=== PATIENT | female | born 1975 | race Caucasian/White ===

== ENCOUNTER 2019-01-28 06:22 | Day surgery (SDC) | payer SELFPAY ==
[2019-01-21 15:52] VITALS: BMI 25.2
[~2019-01-28 06:22] MED LIST: LACTATED RINGERS SOLUTION 1,000 ML IV SCH; ONDANSETRON 4 MG/2 ML VIAL IVPUSH PRN; oxyCODONE HCL 5 MG TABLET PO PRN
[2019-01-28] MEDS ORDERED: EPINEPHrine 1:1,000 1 MG/1 ML - 30ML VIAL (INJECTION) ONE (07:15)
[2019-01-28] MEDS ORDERED: LIDOCAINE HCL 1% PRESERVATIVE FREE - 30ML VIAL ONE (07:15)
[2019-01-28] MEDS ORDERED: ACETAMINOPHEN INJECTION 100 ML IVPB ONE (07:15)
[2019-01-28] MEDS ORDERED: SEVOFLURANE 250 ML BTL ONE (07:16)
[2019-01-28] MEDS ORDERED: GUM MASTIC/STORAX/MSAL/ALCOHOL 1 DRP DROPSBTL MC ONE (07:47)
[2019-01-28] MEDS ORDERED: BACITRACIN 15 GM TUBE TOPICAL OINTMENT ONE ×2 (07:47→11:35)
[2019-01-28] MEDS ORDERED: PROPOFOL 20 ML ONE ×6 (08:03→13:22)
[2019-01-28] MEDS ORDERED: ceFAZolin SODIUM 1 GM VIAL ONE ×2 (08:04→22:22)
[2019-01-28] MEDS ORDERED: SUCCINYLCHOLINE CHLORIDE 200 MG/10 ML VIAL ONE (08:05)
[2019-01-28] MEDS ORDERED: ROCURONIUM BROMIDE 50 MG/5 ML VIAL ONE (08:06)
[2019-01-28] MEDS ORDERED: fentaNYL CITRATE 250 MCG/5 ML VIAL ONE (08:07)
[2019-01-28] MEDS ORDERED: DEXAMETHASONE SOD PHOSPHATE 4 MG/1 ML VIAL ONE (08:08)
[2019-01-28] MEDS ORDERED: MIDAZOLAM HCL 2 MG/2 ML SINGLE DOSE VIAL ONE ×2 (08:08)
[2019-01-28] MEDS ORDERED: ONDANSETRON 4 MG/2 ML VIAL ONE ×2 (08:08→14:18)
[2019-01-28] MEDS ORDERED: SCOPOLAMINE HYDROBROMIDE 1 PATCH PATCH.TD72 ONE ×2 (08:09→08:34)
[2019-01-28] MEDS ORDERED: MINERAL OIL/PETROLATUM,WHITE 3.5 GM TUBE ONE (08:14)
[2019-01-28] MEDS ORDERED: ePHEDrine SULFATE 50 MG/1 ML AMPULE ONE (09:43)
[2019-01-28] MEDS ORDERED: PROMETHAZINE HCL 25 MG/1 ML VIAL ONE (15:55)
[2019-01-28] MEDS ORDERED: PROMETHAZINE HCL 25 MG/1 ML VIAL IVPUSH PRN (16:57)
[2019-01-28] MEDS ORDERED: ACETAMINOPHEN 325 MG TABLET (FP) PO PRN (20:29)
[2019-01-28] MEDS ORDERED: ONDANSETRON 4 MG/2 ML VIAL IVPUSH PRN (20:29)
[2019-01-28] MEDS ORDERED: DEXTROSE 5%-NORMAL SALINE 1,000 ML IV SCH (20:30)
[2019-01-28] MEDS ORDERED: DEXTROSE 5%-WATER - 50 ML IVPB ONE (22:22)
[2019-01-28] MEDS: CEFAZOLIN 1 GM in DEXTROSE 5%-WATER - 50 ML IVPB SCH (22:25)
[2019-01-29] MEDS ORDERED: ceFAZolin SODIUM 1 GM VIAL ONE (03:43)
[2019-01-29] MEDS: CEFAZOLIN 1 GM in DEXTROSE 5%-WATER - 50 ML IVPB SCH ×2 (03:44→09:15)
[2019-01-29] MEDS ORDERED: DEXTROSE 5%-WATER - 50 ML IVPB ONE (03:44)
[2019-01-29 06:41] VITALS: PULSE 103; TEMP 98.7
[2019-01-29] MEDS: traMADol HCL 50 MG TABLET PO PRN ×2 (06:53→10:30)
--- NOTE | 2019-01-29 10:19 | PN ---
Progress Note (short form) - Note Progress Note: ANESTHESIA POSTOP 43 YO FEMALE POD#1 S/P COSMETIC SURGERY AND GETA Patient resting in bed. No complaints. Tolerating PO. No pain issues VSS, Afebrile Continue current care, encouraged IS and ambulation, No anesthetic complications
[2019-01-29 10:46] VITALS: BP 98/52
== END 2019-01-29 10:30 | disposition home or self-care (01) ==
LOC: FASU 06:22 → FM/S 21:08 → FASU 01-29 10:30
PROVIDERS: ATTEND Surgery
PROC: 0J073ZZ Alteration of Back Subcutaneous Tissue and Fascia, Percutaneous Approach (ICD-10-PCS; 2019-01-28)
PROC: 0J0M3ZZ Alteration of Left Upper Leg Subcutaneous Tissue and Fascia, Percutaneous Approach (ICD-10-PCS; 2019-01-28)
PROC: 0J0L3ZZ Alteration of Right Upper Leg Subcutaneous Tissue and Fascia, Percutaneous Approach (ICD-10-PCS; 2019-01-28)
PROC: 0J083ZZ Alteration of Abdomen Subcutaneous Tissue and Fascia, Percutaneous Approach (ICD-10-PCS; principal; 2019-01-28 09:31)
DX: Z41.1 Encounter for cosmetic surgery (principal)
CPT/HCPCS: 81025; 94760; J0131

== ENCOUNTER 2019-09-17 10:05 | Day surgery (SDC) | payer SELFPAY ==
[2019-09-13 15:31] VITALS: BMI 23.7
[2019-09-17] MEDS ORDERED: LIDOCAINE HCL 1%, 10 MG/ML (20ML VIAL) ONE (10:35)
[2019-09-17] MEDS ORDERED: EPINEPHrine 1:1,000 1 MG/1 ML - 30ML VIAL (INJECTION) ONE (10:36)
[2019-09-17] MEDS ORDERED: fentaNYL CITRATE 250 MCG/5 ML VIAL ONE (12:04)
[2019-09-17] MEDS ORDERED: PROPOFOL 20 ML ONE ×2 (12:04→13:56)
[2019-09-17] MEDS ORDERED: MIDAZOLAM HCL 2 MG/2 ML SINGLE DOSE VIAL ONE (12:04)
[2019-09-17] MEDS ORDERED: ROCURONIUM BROMIDE 50 MG/5 ML SYRINGE ONE ×2 (12:04→13:59)
[2019-09-17] MEDS ORDERED: ceFAZolin SODIUM 1 GM VIAL ONE (12:37)
[2019-09-17] MEDS ORDERED: ONDANSETRON 4 MG/2 ML VIAL ONE (12:57)
[2019-09-17] MEDS ORDERED: DEXAMETHASONE SOD PHOSPHATE 4 MG/1 ML VIAL ONE (12:57)
[2019-09-17] MEDS ORDERED: KETOROLAC TROMETHAMINE 30 MG/1 ML VIAL ONE (12:57)
[2019-09-17] MEDS ORDERED: oxyCODONE HCL 5 MG TABLET PO PRN ×2 (15:41)
[2019-09-17] MEDS ORDERED: ONDANSETRON 4 MG/2 ML VIAL IVPUSH PRN (15:41)
[2019-09-17] MEDS ORDERED: PROMETHAZINE HCL 25 MG/1 ML VIAL ONE (16:25)
[2019-09-17] MEDS: PROMETHAZINE HCL 25 MG/1 ML VIAL IVPUSH PRN ×2 (16:25→16:40)
[2019-09-17 18:43] VITALS: BP 134/65; PULSE 80; TEMP 98
== END 2019-09-17 18:45 | disposition home or self-care (01) ==
LOC: FASU 10:05
PROVIDERS: ATTEND Surgery
PROC: 0J0F3ZZ Alteration of Left Upper Arm Subcutaneous Tissue and Fascia, Percutaneous Approach (ICD-10-PCS; 2019-09-17)
PROC: 0J0D3ZZ Alteration of Right Upper Arm Subcutaneous Tissue and Fascia, Percutaneous Approach (ICD-10-PCS; 2019-09-17)
PROC: 0J073ZZ Alteration of Back Subcutaneous Tissue and Fascia, Percutaneous Approach (ICD-10-PCS; principal; 2019-09-17 13:05)
DX: Z41.1 Encounter for cosmetic surgery (principal)
CPT/HCPCS: 84703; 94760

== ENCOUNTER 2021-02-06 06:05 | Day surgery (SDC) | payer SELFPAY ==
[2021-02-02 11:28] VITALS: BMI 25.0
[2021-02-06] MEDS ORDERED: EPINEPHrine/PF 1 MG/1 ML (1:1,000) AMPULE ONE (07:14)
[2021-02-06] MEDS ORDERED: LIDOCAINE HCL 1%, 10 MG/ML (20ML VIAL) ONE (07:15)
[2021-02-06] MEDS ORDERED: DEXAMETHASONE SOD PHOSPHATE 4 MG/1 ML VIAL ONE (07:43)
[2021-02-06] MEDS ORDERED: LIDOCAINE HCL/PF 2% SDV 5ML VIAL ONE (07:43)
[2021-02-06] MEDS ORDERED: fentaNYL CITRATE 250 MCG/5 ML VIAL ONE (07:43)
[2021-02-06] MEDS ORDERED: ONDANSETRON 4 MG/2 ML VIAL ONE (07:43)
[2021-02-06] MEDS ORDERED: SUCCINYLCHOLINE CHLORIDE 200 MG/10 ML SYRINGE ONE (07:44)
[2021-02-06] MEDS ORDERED: ROCURONIUM BROMIDE 50 MG/5 ML SYRINGE ONE (07:44)
[2021-02-06] MEDS ORDERED: PROPOFOL 20 ML ONE ×2 (07:44)
[2021-02-06] MEDS ORDERED: EPHEDRINE SULFATE/0.9% NACL/PF 50 MG/10 ML SYRINGE NR ONE (07:45)
[2021-02-06] MEDS ORDERED: MIDAZOLAM HCL 2 MG/2 ML SINGLE DOSE VIAL ONE ×2 (07:45)
[2021-02-06] MEDS ORDERED: BACITRACIN 15 GM TUBE TOPICAL OINTMENT ONE (08:08)
[2021-02-06] MEDS ORDERED: oxyCODONE HCL 5 MG TABLET PO PRN ×2 (11:23)
[2021-02-06] MEDS ORDERED: ONDANSETRON 4 MG/2 ML VIAL IVPUSH PRN (11:23)
[2021-02-06] MEDS ORDERED: LACTATED RINGERS SOLUTION 1,000 ML IV SCH (11:30)
[2021-02-06] MEDS ORDERED: ENOXAPARIN NA (PORCINE) 40 MG/0.4 ML DISP.SYRIN SQ ONE (12:00)
[2021-02-06 12:19] VITALS: TEMP 97.6
[2021-02-06 13:51] VITALS: BP 110/76; PULSE 81
== END 2021-02-06 13:53 | disposition home or self-care (01) ==
LOC: FASU 06:05
PROVIDERS: ATTEND Surgery
CPT/HCPCS: 81025; 94760